=== PATIENT | female | born 1985 | race Two or more races ===

== ENCOUNTER 2020-06-28 06:16 | Outpatient (REF) | payer OTHER, SELFPAY ==
[2020-06-28 11:38] LABS: Hematocrit 41.7 % (37-47); Hemoglobin 13.6 g/dl (12.0-16.0); Mean Corpuscular HGB Conc 32.6 g/dl (31.0-35.0); Mean Corpuscular Hemoglobin 29.4 pg (27.0-33.0); Mean Corpuscular Volume 90.3 fL (80-98); Mean Platelet Volume 11.6 fL (9.4-12.3); Platelet Count 259 X10*3/uL (160-400); Red Blood Count 4.62 X10*6/uL (4.20-5.50); White Blood Count 6.3 X10*3/uL (4.8-10.8)
[2020-06-28 12:09] LABS: Anion Gap 12 (12-20); Blood Urea Nitrogen 11 mg/dL (9-16); Carbon Dioxide 31 mmol/L (22-29); Chloride 104 mmol/L (96-108); Potassium 4.7 mmol/L (3.3-5.1); Sodium 142 mmol/L (135-145)
[2020-06-28 12:10] LABS: Alanine Aminotransferase 19 U/L (0-31); Albumin Level 4.4 g/dL (3.5-5.0); Alkaline Phosphatase 67 U/L (39-117); Aspartate Amino Transferase 17 U/L (5-31); Bilirubin Total 0.4 mg/dL (0.0-1.0); Calcium 9.6 mg/dL (8.4-10.2); Estimated Glomerular Filt Rate > 60; Glucose Fasting 93 mg/dL (60-99); TSH reflex Free T4 1.67 uIU/mL (0.32-4.0); Total Protein 7.1 g/dL (6.5-8.0)
[2020-06-28 13:09] LABS: Estimated Average Glucose 117 mg/dL; Hemoglobin A1c % 5.7 %
[2020-06-29 13:46] LABS: Anti Nuclear Antibody Screen NEGATIVE (NEGATIVE)
== END 2020-06-28 06:17 | disposition home or self-care (01) ==
LOC: HO.HMGCLDS 06:16
PROVIDERS: PCP Internal Medicine; Visit Provider Internal Medicine
DX: Z00.00 Encounter for general adult medical examination without abnormal findings (principal); R21 Rash and other nonspecific skin eruption; R73.9 Hyperglycemia, unspecified
CPT/HCPCS: 36415; 80053; 83036; 84443; 85027; 86038; 86039

== ENCOUNTER 2020-10-05 15:54 | Outpatient (REF) | payer OTHER, SELFPAY ==
--- NOTE | ~2020-10-05 | XR_ITS ---
EXAMINATION: XR FOOT, RIGHT CLINICAL INFORMATION: Injury right foot. COMPARISON: None TECHNIQUE: AP, lateral, and oblique views of the right foot. FINDINGS: There is a nondisplaced fracture base of proximal phalanx fourth digit without intra-articular extension. No additional bony abnormality seen. The soft tissues are normal. XR/XR foot RT min 3V IMPRESSION: Nondisplaced fracture base of proximal phalanx fourth digit without intra-articular extension.
== END 2020-10-05 15:55 | disposition home or self-care (01) ==
LOC: HO.HMGCX 15:54
PROVIDERS: PCP Internal Medicine; Visit Provider Nurse Practitioner Family
DX: S99.921A Unspecified injury of right foot, initial encounter (principal)
CPT/HCPCS: 73630

== ENCOUNTER → 2020-10-16 10:18 | Outpatient (BNVA) | payer OTHER, SELFPAY | PROVIDERS: Visit Provider Physician Assistant | DX: S92.911A Unspecified fracture of right toe(s), initial encounter for closed fracture (principal) | CPT/HCPCS: 99202 ==

== ENCOUNTER 2023-12-11 09:13 | Emergency (ER) | payer OTHER, SELFPAY ==
[2023-12-11 09:16] VITALS: BP 129/82; PULSE 60; RESP 18; TEMP 36.4; O2SAT 100; BMI 25.6
[2023-12-11 09:30] LABS: MANUAL DIFF FLAG NO
[2023-12-11 09:35] LABS: Basophils Absolute Auto 0.1 X10*3/uL (0.0-0.2); Basophils Percent Auto 0.9 % (0-2); Eosinophils Absolute Auto 0.1 X10*3/uL (0.0-0.4); Eosinophils Percent Auto 0.6 % (0-4); Hematocrit 38.2 % (37.0-47.0); Hemoglobin 13.2 g/dl (12.0-16.0); Imm Gran Abs Auto 0.04 X10*3/uL (0.00-0.03); Imm Gran Pct Auto 0.4 % (0.0-0.4); Lymphocytes Absolute Auto 1.3 X10*3/uL (1.2-4.9); Lymphocytes Percent Auto 13.8 % (20-40); Mean Corpuscular HGB Conc 34.6 g/dl (31.0-35.0); Mean Corpuscular Hemoglobin 30.8 pg (27.0-33.0); Monocytes Absolute Auto 0.6 X10*3/uL (0.1-1.2); Monocytes Percent Auto 6.6 % (2-11); Neutrophils Absolute Auto 7.6 x10*3/uL (2.0-8.3); Neutrophils Percent Auto 77.7 % (45-73); Platelet Count 248 X10*3/uL (160-400); Red Blood Count 4.29 X10*6/uL (4.20-5.50); Red Cell Distribution Width 13.2 % (11.0-16.0); White Blood Count 9.7 X10*3/uL (4.8-10.8)
--- NOTE | 2023-12-11 09:44 | ED_ITS ---
HPI - Nausea/Vomiting/Diarrhea General Chief complaint: Nausea/Vomiting/Diarrhea Stated complaint: vomiting, diarrhea Time Seen by Provider: 12/11/23 09:43 Source: patient Mode of arrival: ambulatory Limitations: no limitations History of Present Illness HPI Narrative: 38-year-old female past medical history significant for hyperglycemia toe fracture who presents emergency department with nausea vomiting and diarrhea. She states she did have some sick kids few days ago she denies any falls or injuries she denies chest pain cough or fever. MD elicited complaint: nausea, vomiting and diarrhea Related Data Home Medications ?Medication ?Instructions ?Recorded ?Confirmed [id number] 3-fat com #1 27 cap PO 06/26/20 06/26/20 mg-1 mg-300 mg capsule Previous Rx's ?Medication ?Instructions ?Recorded ondansetron 4 mg disintegrating 4 mg PO Q6H #14 tabs 12/11/23 tablet Allergies Allergy/AdvReac Type Severity Reaction Status Date / Time No Known Allergies Allergy Verified 12/11/23 09:17 [No Known Allergies*] Review of Systems 2 Review of Systems: Review of systems: General: Patient denies any fever chills recent illness or falls Musculoskeletal: Denies back pain or body aches or other injuries HEENT: denies headache, runny nose, ear pain Respiratory: denies shortness of breath, cough Cardiovascular: no chest pain or palpitations : denies dysuria, frequency Abdomen: Diarrhea nausea vomiting denies abdominal pain Extremities: no swelling, no pain Skin: no diaphoresis Yes all other systems are reviewed and are negative PMFSH Past Medical History Medical History Annual physical exam Hyperglycemia Rash Surgical History H/O: hysterectomy Family History Family History Father Hypertension Mother Hypertension Social History Social History (Updated 10/16/20 @ 10:32 by Paulino Gonzales) Alcohol intake: former Smoked in Last 30 Days: No Use of substances other than those prescribed or required for medical reasons: No Advance Directives: No Advance Directives Information Provided: Yes Do you have a plan to hurt others: No Plan 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 Physical Exam 2 Vital Signs: Vital Signs: Last Vital Signs Temp 97.5 F 12/11/23 09:16 Pulse 60 12/11/23 09:16 Resp 18 12/11/23 09:16 BP 129/82 12/11/23 09:16 Pulse Ox 100 12/11/23 09:16 O2 Del Method Room Air 12/11/23 09:16 BMI result Body Mass Index 25.6 General: Well-appearing well-nourished in no signs of distress HEENT: Normocephalic atraumatic Neck: No signs of JVD, no masses no tenderness or lymphadenopathy Cardiovascular: Regular rate and rhythm Respiratory: Clear to auscultation bilaterally Abdomen: Soft nontender no masses rectal exam performed 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 Extremities: Normal pedal pulses no signs of edema Skin: Dry warm no rashes Back: No tenderness full ROM Course Course Course Narrative: Patient is feeling much better I will discharge home with Zofran and close PCP follow up. Medications Administered Discontinued Medications Generic Name Dose Route Start Last Admin Trade Name Naveenq PRN Reason Stop Dose Admin Famotidine 20 mg 12/11/23 09:58 12/11/23 10:05 Famotidine/Pf 20 Mg/2 Ml Vial IVPUSH 12/11/23 09:59 20 mg ONCE ONE Administration Sodium Chloride 1,000 mls @ 999 mls/hr 12/11/23 09:45 12/11/23 09:53 Ns IV 12/11/23 10:45 999 mls/hr .Q1H1M BRIAN Administration Ondansetron HCl 4 mg 12/11/23 09:44 12/11/23 09:53 Ondansetron Hcl 4 Mg/2 Ml Vial IVPUSH 12/11/23 09:45 4 mg ONCE ONE Administration Medical Decision Making Medical Decision Making [facility] Narrative: I do feel this is most likely acute GI illness I do not think his surgical issue. I will get a CT scan is warranted I will give the patient fluids and reassess Differential Diagnosis Differential Diagnoses: The differential diagnosis associated with the presentation includes Vomiting diarrhea gastroenteritis dehydration electrolyte abnormality patient has a benign abdomen I will give the patient Zofran and fluids and reassess Lab Data 12/11/23 09:26 12/11/23 09:26 Labs: Lab Results 12/11/23 Range/Units 09:26 WBC 9.7 (4.8-10.8) X10*3/uL RBC 4.29 (4.20-5.50) X10*6/uL Hgb 13.2 (12.0-16.0) g/dl Hct 38.2 (37.0-47.0) % MCV 89.0 (80.0-98.0) fL MCH 30.8 (27.0-33.0) pg MCHC 34.6 (31.0-35.0) g/dl RDW 13.2 (11.0-16.0) % Plt Count 248 (160-400) X10*3/uL MPV 11.0 (9.4-12.3) fL Immature Gran % (Auto) 0.4 (0.0-0.4) % Neut % (Auto) 77.7 H (45-73) % Lymph % (Auto) 13.8 L (20-40) % [place] % (Auto) 6.6 (2-11) % Eos % (Auto) 0.6 (0-4) % Baso % (Auto) 0.9 (0-2) % Lymph # (Auto) 1.3 (1.2-4.9) X10*3/uL [place] # (Auto) 0.6 (0.1-1.2) X10*3/uL Eos # (Auto) 0.1 (0.0-0.4) X10*3/uL Baso # (Auto) 0.1 (0.0-0.2) X10*3/uL Abs Immat Gran (auto) 0.04 H (0.00-0.03) X10*3/uL Absolute Neuts (auto) 7.6 (2.0-8.3) x10*3/uL Absolute Nucleated RBC 0.000 (0.0-0.012) X10*3/uL Nucleated RBC % (auto) 0.0 (0.0-0.2) /100WBC Sodium 139 (135-145) mmol/L Potassium 3.7 (3.3-5.1) mmol/L Chloride 107 (96-108) mmol/L Carbon Dioxide 23 (22-29) mmol/L Anion Gap 13 (12-20) BUN 8 L (9-16) mg/dL Creatinine 0.66 (0.5-1.4) mg/dL Estim Creat Clear Calc 100.1 Estimated GFR > 60 Random Glucose 108 (60-115) mg/dL Calcium 9.1 (8.4-10.2) mg/dL Discharge Plan Discharge Clinical Impression: Vomiting, Dehydration, Diarrhea Patient Disposition: Home, Self-Care Instructions: Dehydration (ED), Acute Nausea and Vomiting (ED), Acute Diarrhea (ED) Additional Instructions: You were seen today for vomiting and diarrhea. You had labs done and were given some medications I will send her home with the same medications. If you have worsening nausea vomiting or any other concerns please return to emergency department Prescriptions: New ondansetron 4 mg tablet,disintegrating 4 mg PO Q6H Qty: 14 0RF No Action [id number] 3-fat com #1 27-1-300 mg capsule PO Print Language: Ukrainian
[2023-12-11 09:45] LABS: Anion Gap 13 (12-20); Blood Urea Nitrogen 8 mg/dL (9-16); Calcium 9.1 mg/dL (8.4-10.2); Carbon Dioxide 23 mmol/L (22-29); Chloride 107 mmol/L (96-108); Creatinine Clr Calc Pharmacy 100.1; Estimated Glomerular Filt Rate > 60; Glucose Random 108 mg/dL (60-115); Potassium 3.7 mmol/L (3.3-5.1); Sodium 139 mmol/L (135-145)
[2023-12-11] MEDS: ondansetron HCL 4 MG/2 ML VIAL IVPUSH (09:53)
[2023-12-11] MEDS: 0.9 % Sodium Chloride 1,000 ML 999 ML IV (09:53)
[2023-12-11] MEDS: Famotidine/PF 20 MG/2 ML VIAL IVPUSH (10:05)
[2023-12-11 11:55] VITALS: BP 129/82; PULSE 60; RESP 18; TEMP 36.4; O2SAT 98
== END 2023-12-11 11:55 | disposition home or self-care (01) ==
PROVIDERS: Emergency Provider Student in an Organized Health Care Education/Training Program
DX: E86.0 Dehydration (principal); R11.2 Nausea with vomiting, unspecified; R19.7 Diarrhea, unspecified
CPT/HCPCS: 36415; 80048; 85025; 96361; 96374; 96375; 99284; J2405

== ENCOUNTER 2024-07-13 09:15 | Outpatient (REF) | payer OTHER, SELFPAY ==
--- OUTSIDE RECORDS SUMMARY | 2024-07-13 09:50 | XMS_ITS ---
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 Encounter Location Date Provider Diagnosis [address] [address] 03/18/2024 CORBY JOSHI Encounter for gynecological examination (general) (routine) without abnormal findings Z01.419 and Encounter for screening for infections with a predominantly sexual mode of transmission Z11.3 Assessments Encounter Date Diagnosis (ICD Code) Assessment Notes Treatment Notes Treatment Clinical Notes Section Notes 03/18/2024 Encounter for gynecological examination (general) (routine) without abnormal findings (ICD-10 - Z01.419) During the visit, the following areas of concern were addressed: Discussed cervical cancer screening with either cytology alone every 3 years or high risk HPV co-testing every 5 years as per ASCCP guidelines. Advised continued annual pelvic exams. Patient encouraged to increase her level of exercise. SBE technique encouraged/tau ght. 03/18/2024 Encounter for screening for infections with a predominantly sexual mode of transmission (ICD-10 - Z11.3) Plan Of Treatment Treatment Notes Assessment Notes Encounter for gynecological examination (general) (routine) without abnormal findings During the visit, the following areas of concern were addressed: Discussed cervical cancer screening with either cytology alone every 3 years or high risk HPV co-testing every 5 years as per ASCCP guidelines. Advised continued annual pelvic exams. Patient encouraged to increase her level of exercise. SBE technique encouraged/taught. Next Appt Details Follow Up: 1 Year, Reason: Y early Instrument Checker Exam Progress Notes * FERNANDO BANKSDOB:1988 (36 yo F)Acc No.[id number]:03/18/2024 Progress Note Patient:?FERNANDO BANKS Provider:?CORBY JOSHI MD :05/08/1988???Age:35 Y???Sex:Female D ate:03/18/2024 Address:[address] [place], [place] [id number] Subjective: * Chief Complaints: * ???1. 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 * HPI: ???Constitutional:? 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 She is new to this practice, having received previous drop clipper care . She has been in state of health since her last exam. She has the following concerns: . She has received the Covid-19 vaccine. Relationship status: for years. She is sexually active. Sexual partner(s): . She does wish to have STI testing. Menses: Contraception: The patient has had an abnormal pap smear within the last 5 years. Her most recent pap smear was . The patient does exercise. She exercises x days/week by . * ROS:?Annual Instrument Checker Exam ROS:?Bowel habit changes?denies.?Bladder symptoms?denies.?Vaginal discharge, unusual?denies.?Vaginal itch or odor?denies.?weight or appetite changes?denies.?Chest pains, SOB?denies.?depression?denies.?Breast:?Denies?Breast lump.?Denies?Nipple discharge.?Hematology:?Denies?Swollen glands.?Skin:?Patient complaining of?changing moles.?Psychiatric:?Denies?Anxiety.? * Medical History:? Objective: * Vitals:? * Examination: ???General Examination: ?GENERAL APPEARANCE:?in no acute distress,well developed, well nourished,sluice tender present in room.?HEAD:?normocephalic, atraumatic.?NECK/THYROID:?neck supple, full range of motion,thyroid normal.?LYMPH NODES:?no axillary or supraclavicular adenopathy.?SKIN:?normal,good turgor,no rashes,no suspicious lesions.?BREASTS:?normal,no dimpling,no discharge,no drainage,no masses palpable bilaterally,nontender.?ABDOMEN:?soft, non-tender, non distended without masses or hepatosplenomegay.?BACK:?no costovertebral angle tenderness.?FEMALE GENITOURINARY:?Vulva without lesions or masses, vagina pink without abnormal discharge, lesions or masses, cervix appears normal and is not tender to palpation, uterus is normal size, mobile, nontender and anteverted, ovaries are not palpable.?NEUROLOGIC:?alert and oriented,gait normal.?PSYCH:?alert, oriented,cognitive function intact,cooperative with exam,good eye contact,mood/affect full range,speech clear.? Assessment: * Assessment: 1.?Encounter for gynecologic al examination (general) (routine) without abnormal findings - Z01.419 (Primary)???2.?Encounter for screening for infections with a predominantly sexual mode of transmission - Z11.3??? Plan: * Treatment: * Follow Up:?1 Year (Reason: Y early Instrument Checker Exam) * Images: Billing Information: * Visit Code:? 40685 Preventive Care New Pt. Age 18-39. * Procedure Codes:? 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 She is new to this practice, having received previous drop clipper care . She has been in state of health since her last exam. She has the following concerns: . She has received the Covid-19 vaccine. Relationship status: for years. She is sexually active. Sexual partner(s): . She does wish to have STI testing. Menses: Contraception: The patient has had an abnormal pap smear within the last 5 years. Her most recent pap smear was . The patient does exercise. She exercises x days/week by . Examination Category Sub-Category Detail Notes Category Not es General Examination GENERAL APPEARANCE: in no ac tae distress, well developed, well nourished, sluice tender present in room HEAD: normocephalic, atrau matic NECK/THYROID: neck supple, full ra nge of motion, thyroid normal ABDOMEN: soft, non-tender, no n distended without masses or hepatosplenomegay NEUROLOGIC: alert and oriented, gait normal SKIN: normal, good turgor, no rashes, no suspicious lesions BACK: no costovertebral an gle tenderness BREASTS: normal, no dimpling, no discharge, no drainage, no masses palpable bilaterally, nontender LYMPH NODES: no axillary or supra clavicular adenopathy PSYCH: alert, oriented, cog nitive function intact, cooperative with exam, good eye contact, mood/affect full range, speech clear FEMALE GENITOURINARY: Vulva without lesi ons or masses, vagina pink without abnormal discharge, lesions or masses, cervix appears normal and is not tender to palpation, uterus is normal size, mobile, nontender and anteverted, ovaries are not palpable
--- OUTSIDE RECORDS SUMMARY | 2024-07-13 09:50 | XMS_ITS | Patient Health Record ---
Author Organization [facility] Address [address] [place] [address] Care Team Providers Care Environmental Conflict Manager Name Role Phone JOSHICORBY HERNANDEZ Unavailable [phone] Reason For Referral No Information Plan Of Treatment No Information Insurance Providers Payer Name Payer Address Payer Phone Subscriber Number Group Number Insured Name Patient Relationship to Insured Coverage Start Date Coverage End Date [facility] [address] [address] [place] [address] FERNANDO FRANCE Self - patient is the insured
--- OUTSIDE RECORDS SUMMARY | 2024-07-13 09:50 | XMS_ITS ---
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 Encounter Location Date Provider Diagnosis [address] [address] 03/15/2024 CORBY JOSHI Encounter for gynecological examination (general) (routine) without abnormal findings Z01.419 and Encounter for screening for infections with a predominantly sexual mode of transmission Z11.3 Assessments Encounter Date Diagnosis (ICD Code) Assessment Notes Treatment Notes Treatment Clinical Notes Section Notes 03/15/2024 Encounter for gynecological examination (general) (routine) without abnormal findings (ICD-10 - Z01.419) During the visit, the following areas of concern were addressed: Discussed cervical cancer screening with either cytology alone every 3 years or high risk HPV co-testing every 5 years as per ASCCP guidelines. Advised continued annual pelvic exams. Patient encouraged to increase her level of exercise. SBE technique encouraged/tau ght. 03/15/2024 Encounter for screening for infections with a [...] Follow Up: 1 Year, Reason: Y early Assembler Unit Exam Progress Notes * FERNANDO BANKSDOB:1988 (36 yo F)Acc No.[id number]:03/15/2024 Progress Note Patient:?FERNANDO BANKS Provider:?CORBY JOSHI MD :05/08/1988???Age:35 Y???Sex:Female D ate:03/15/2024 Address:[address] [place], [place] [id number] Subjective: * Chief Complaints: * ???1. 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 * HPI: ???Constitutional:? 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 She is new to this practice, having received previous ferris wheel operator care . She has been in state [...] exercises x days/week by . * ROS:?Annual Assembler Unit Exam ROS:?Bowel habit changes?denies.?Bladder symptoms?denies.?Vaginal discharge, unusual?denies.?Vaginal itch or odor?denies.?weight or appetite changes?denies.?Chest pains, SOB?denies.?depression?denies.?Breast:?Denies?Breast lump.?Denies?Nipple discharge.?Hematology:?Denies?Swollen glands.?Skin:?Patient complaining of?changing moles.?Psychiatric:?Denies?Anxiety.? * Medical History:? Objective: * Vitals:? * Examination: ???General Examination: ?GENERAL APPEARANCE:?in no acute distress,well developed, well nourished,professional wrestler present in room.?HEAD:?normocephalic, atraumatic.?NECK/THYROID:?neck supple, full range [...] * Follow Up:?1 Year (Reason: Y early Assembler Unit Exam) * Images: Billing Information: * Visit Code:? 59757 Preventive Care New Pt. Age 18-39. 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 She is new to this practice, having received previous ferris wheel operator care . She has been in state [...] ac tae distress, well developed, well nourished, professional wrestler present in room HEAD: normocephalic, atrau matic [...]
--- OUTSIDE RECORDS SUMMARY | 2024-07-13 09:50 | XMS_ITS | Clinical Summary ---
Author Organization Patient Business [facility] Address [address] [place] [address] Care Team Providers Care Child Care Attendant Name Role Phone Tatiana Jain MD Primary Care Provider [phone] Allergies No known active allergies Medications hydrocortisone 2.5 % ointment Light amount over affected hemorroidal tissue prn 4 11/28/19 25 Active UNABLE TO FIND Misc. Devices (Sitz Bath) Misc 1 Canister by Does not apply route 2 times daily. - Does not apply 4 Active polyethylene glycol (MIRALAX) 17 gram packet Take 1 Packet by mouth daily for 3 days. - Oral Active docusate sodium (Colace) 100 mg capsule Take 1 capsule (100 mg total) by mouth 2 (two) times a day. 60 each 11 4 Active linaCLOtide (Linzess) 290 mcg capsule Take 1 capsule (290 mcg total) by mouth 1 (one) time each day. 30 capsule 11 4 Active Active Problems Problem Noted Date Diagnosed Date Prediabetes 05/11/2024 Constipation 05/10/2024 Chronic bilateral low back pain without sciatica 05/10/2024 Encounters Date Type Department Care Team Description 05/10/2024 8:30 AM EST Office Visit Adult Medicine [address] [phone] Ruddy Campos PA Routine physical examination (Primary Dx); Constipation, unspecified constipation type; Chronic bilateral low back pain without sciatica; Screening for cervical cancer; Screening mammogram for breast cancer from Last 3 Months Immunizations Name Administration Dates Next Due Influenza trivalent, 0.5mL, preservative free (Fluarix; FluLaval; Fluzone) ages 6mo and older (Afluria) 3 years and older 12/08/2022,05/04/2018 Influenza trivalent, MDCK, 0 .5mL, preservative free (Flucelvax) 6mo and older 12/26/2023 MMR, measles mumps and rubel la Live (Priorix; M-M-R II) 12mo and older 04/17/2020 Tdap Tetanus diptheria acell ular pertussis (Boostrix; Adacel) 7yo and older 01/30/2020,08/23/2018 Surgical History Surgery Date Site/Laterality Comments TUBAL LIGATION Family History Medical History Relation Name Comments Hyperlipidemia Father No Known Problems Maternal Grandfather No Known Problems Maternal Grandmother Uterine cancer Mother 60's No Known Problems Paternal Grandfather No Known Problems Paternal Grandmother Relation Name Status Comments Father Alive Maternal Grandfather Maternal Grandmother Mother Paternal Grandfather Paternal Grandmother Social History Tobacco Use Types Packs/Day Years Used Date Smoking Tobacco: Never Smokeless Tobacco: Never Tobacco Cessation:Counseling Given: Not Answered Alcohol Use Standard Drinks/Week Comments Yes 0 (1 standard drink = 0.6 oz pur e alcohol) occ Housing Instability Answer Date Recorde d Are you worried that in the next 2 months you may not have stable housing? No 05/09/2024 Food Access & Nutrition Answer Date Rec orded Do you have access to a vari ety of food including fruits and vegetables? Yes 05/09/2024 Access to Healthcare Answer Date Record ed Within the last 3 months, hernesto boone many times did you visit the emergency department for your medical care? 1 05/09/2024 Health Literacy Answer Date Recorded How often do you need to hav e someone help you when you read instructions, pamphlets, or other written material from your doctor or pharmacy? Never 05/09/2024 Caregiver: How often do you need to have someone help you when you read instructions, pamphlets, or other written material from your doctor or pharmacy? Not on file 05/09/2024 Financial Risk Answer Date Recorded How hard is it for you to pa y for the very basics like food, housing, medical care, and air conditioning / heating? Not very hard 05/09/2024 Transportation Answer Date Recorded Has the lack of transportati on kept you from meetings, work, or from getting things needed for daily living? Yes Has the lack of transportati on kept you from medical appointments or from getting medications? Yes 05/09/2024 Social Isolation Answer Date Recorded How often do you feel lonely or isolated from th ose around you? Never 05/09/2024 Food Risk Answer Date Recorded Within the past 12 months we worried whether our food would run out before we got money to buy more. Never true 05/09/2024 Within the past 12 months th e food we bought just didn't last and we didn't have money to get more. Never true 05/09/2024 Dependent Care Answer Date Recorded Do you need help finding or paying for care for your loved ones. For example, child daycare worker or elderly care for an older adult? No 05/09/2024 Education Answer Date Recorded Do you think completing more education or training, like finishing a GED, going to college, or learning a trade, would be helpful for you? N/A 05/09/2024 Employment and Income Answer Date Recor ded During the last four weeks, have you been actively looking for work? No 05/09/2024 Living Situation Answer Date Recorded What is your living situation? 0 05/09/2024 Comments Unknown Sex and Gender Information Value Date Recorded Sex Assigned at Not on file Legal Sex Female 3:14 PM EDT Gender Identity Not on file Sexual Orientation Not on file Obstetrics History Last Filed Vital Signs Vital Sign Reading Time Taken Comments Blood Pressure 112/70 05/10/2024 8:31 AM EST Pulse 72 05/10/2024 8:31 AM EST Temperature 36.6 ??C (97.9 ??F) 05/10/2024 8:31 AM ES T Respiratory Rate 14 05/10/2024 8:31 AM EST Oxygen Saturation - - Inhaled Oxygen Concentration - - Weight 69.4 kg (153 lb 1.6 oz) 05/10/2024 8:31 A M EST Height 161.3 cm (5' 3.5 ) 05/10/2024 8:31 AM EST Body Mass Index 26.7 05/10/2024 8:31 AM EST Plan of Treatment Upcoming Encounters Date Type Department Care Team (Late st Contact Info) Description 05/12/2025 9:30 AM EST Office Visit Adult Medicine [facility] [address] [place] [phone] Tatiana Jain MD [address] [place] [phone] Health Maintenance Due Date Last Done Comments Breast Cancer Screening 1984 Hepatitis B Vaccines (1 of 3 - 19+ 3-dose series) 05/08/2003 Pneumococcal Vaccine: Pediatrics (0 to 5 Years) and At-Risk Patients (6 to 64 Years) (1 of 2 - PCV) 05/08/2003 Cervical Cancer Screening: Pap Smear 2005 HIV Screening 06/14/2023 Hepatitis C Screening 06/14/2023 Depression Screening 05/09/2025 05/09/2024, 05/19/2023 Social Influencers of Health Screening 05/09/2025 05/09/2024 Cholesterol Screening (Lipid Panel) 05/10/2029 05/10/2024 DTaP,Tdap,and Td Vaccines (3 - Td or Tdap) 01/29/2030 01/30/2020, 08/23/2018 MMR Vaccines Aged Out 04/17/2020 No longer eligi ble based on patient's age to complete this topic COVID-19 Vaccine Discontinued 04/10/2021, 07/25/2020, 07/03/2020 Influenza Vaccine Completed 12/26/2023, 12/08/2022, 05/04/2018 HIB Vaccines Aged Out No longer eligi ble based on patient's age to complete this topic HPV Vaccines Aged Out No longer eligi ble based on patient's age to complete this topic Hepatitis A Vaccines Aged Out No long er eligible based on patient's age to complete this topic IPV Vaccines Aged Out No longer eligi ble based on patient's age to complete this topic Meningococcal ACWY Vaccine Aged Out N o longer eligible based on patient's age to complete this topic Meningococcal B Vaccine Aged Out No l onger eligible based on patient's age to complete this topic RSV Immunization Patients Under 20 months Aged Out No longer eligible based on patient's age to complete this topic Varicella Vaccines Aged Out No longer eligible based on patient's age to complete this topic Procedures Procedure Name Priority Date/Time Associated Diagnosis Comments HEMOGLOBIN A1C Routine 05/10/2024 1:07 PM EST Routine physical examination LIPID PANEL WITH REFLEX TO DIRECT LDL Routine 05/10/2024 1:07 PM EST Routine physical examination THYROID STIMULATING HORMONE WITH REFLEX TO FREE T4 AND FREE T3 Routine 05/10/2024 1:07 PM EST Routine physical examination HM DEPRESSION SCREENING Routine 05/19/2023 from Last 3 Months or Most Recently Relevant to Health Maintenance Results * Thyroid stimulating hormone with reflex to free t4 and free t3 (05/10/2024 1:07 PM EST) TSH 1.64 0.40 - 4.00 mcIU/mL LAB CHEMISTRY METHOD 05/10/2024 5:02 PM EST [facility] Blood Venous blood specimen / Unknown Venipuncture / Unknown 05/10/2024 1:07 PM EST 05/10/2024 1:11 PM EST us Ruddy BAZAN LAB BLOOD ORDERABLES Final Res ult [facility] [address] [place] [address], * (ABNORMAL) Lipid panel with reflex to direct LDL (05/10/2024 1:07 PM EST) Cholesterol 217(H) 0 - 200 mg/dL LAB CHEMISTRY METHOD 05/10/2024 4:58 PM EST [facility] Triglycerides 90 0 - 150 mg/dL LAB CHEMISTRY METHOD 05/10/2024 4:58 PM EST [facility] HDL 82 >=40 mg/dL LAB CHEMISTRY METHOD 05/10/2024 4:58 PM EST [facility] LDL Calculated 117(H) 0 - 100 mg/dL LAB CHEMISTRY METHOD 05/10/2024 4:58 PM EST [facility] VLDL Cholesterol Richard 18 mg/dL LAB CHEMISTRY METHOD 05/10/2024 4:58 PM EST [facility] Non HDL Chol. (LDL+VLDL) 135 <145 mg/dL LAB CHEMISTRY METHOD 05/10/2024 4:58 PM EST [facility] Chol/HDL Ratio 2.6 0.0 - 4.4 LAB CHEMISTRY METHOD 05/10/2024 4:58 PM EST [facility] Blood Venous blood specimen / Unknown Venipuncture / Unknown 05/10/2024 1:07 PM EST 05/10/2024 1:11 PM EST Ruddy BAZAN LAB BLOOD ORDERABLES Final Res ult Performing Organization Address City/[facility]/ZIP Co de Phone Number [facility] [address] [place] [address], [place] [phone] * Hemoglobin A1c (05/10/2024 1:07 PM EST) Hemoglobin A1C 5.9 <6.5 % LAB CHEMISTRY METHOD 05/10/2024 8:55 PM EST [facility] Mean Bld Glu Estim. 123 mg/dL LAB CHEMISTRY METHOD 05/10/2024 8:55 PM EST [facility] Blood Venous blood specimen / Unknown Venipuncture / Unknown 05/10/2024 1:07 PM EST 05/10/2024 1:11 PM EST Ruddy BAZAN LAB BLOOD ORDERABLES Final Res ult [facility] [address] [place] [address], [place] [phone] * Depression Screening (05/19/2023) Depression Screening abstracted us Historical Provider HEALTH MAINTENANCE Final Result from Last 3 Months or Most Recently Relevant to Health Maintenance Insurance [employer] Care Teams Child Care Attendant Relationship Specialty Start Date End Date Tatiana Jain MD [address] [place] [address] [phone] PCP - General 05/18/23
== END 2024-07-13 09:16 | disposition home or self-care (01) ==
LOC: HO.LAB 09:15
PROVIDERS: PCP Internal Medicine; Visit Provider Internal Medicine
DX: Z13.89 Encounter for screening for other disorder (principal)

== ENCOUNTER 2024-07-15 08:51 | Outpatient (REF) | payer OTHER, SELFPAY ==
[2024-07-15 09:04] LABS: MANUAL DIFF FLAG NO
--- OUTSIDE RECORDS SUMMARY | 2024-07-15 09:04 | XMS_ITS | Patient Health Record ---
Author Organization [facility] Address [address] [place] [address] Care Team Providers Care Blend Plant Operator Name Role Phone JOSHI CORBY Unavailable [phone] Reason For Referral No Information Plan Of Treatment No Information Insurance Providers Payer Name Payer Address Payer Phone Subscriber Number Group Number Insured Name Patient Relationship to Insured Coverage Start Date Coverage End Date [facility] [address] [address] [place] [address] FERNANDO FRANCE Self - patient is the insured
--- OUTSIDE RECORDS SUMMARY | 2024-07-15 09:05 | XMS_ITS ---
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 * HPI: ???Constitutional:? Fernando is a 35yo GxPx with LMP x/x/x who presents for her yearly research and evaluation manager annual exam. She is new to this practice, having received previous research and evaluation manager care . She has been in state [...] exercises x days/week by . * ROS:?Annual Core Feeder Exam ROS:?Bowel habit changes?denies.?Bladder symptoms?denies.?Vaginal discharge, unusual?denies.?Vaginal itch or odor?denies.?weight or appetite changes?denies.?Chest pains, SOB?denies.?depression?denies.?Breast:?Denies?Breast lump.?Denies?Nipple discharge.?Hematology:?Denies?Swollen glands.?Skin:?Patient complaining of?changing moles.?Psychiatric:?Denies?Anxiety.? * Medical History:? Objective: * Vitals:? * Examination: ???General Examination: ?GENERAL APPEARANCE:?in no acute distress,well developed, well nourished,alignment specialist present in room.?HEAD:?normocephalic, atraumatic.?NECK/THYROID:?neck supple, full range [...] * Follow Up:?1 Year (Reason: Y early Core Feeder Exam) * Images: Billing Information: * Visit Code:? 87439 Preventive Care New Pt. Age 18-39. * Procedure Codes:? * Electronic signature of CORBY JOSHI MD on 07/15/2024 at 09:04 AM EDT Sign off status: Pending * Provider:?CORBY JOSHI MD Date:?2024 Generated for Noris felix/Bhupendra/eTwildsmitting on:?07/15/2024 09:04 AM EDT History and Physical Notes * HPI (History of Present Illness) Category Sub-Category Detail Notes Category Not es Constitutional Fernando is a 35yo GxPx with LMP x/x/x who presents for her yearly research and evaluation manager annual exam. She is new to this practice, having received previous research and evaluation manager care . She has been in state [...] General Examination GENERAL APPEARANCE: in no ac ate distress, well developed, well nourished, alignment specialist present in room HEAD: normocephalic, atrau matic [...]
--- OUTSIDE RECORDS SUMMARY | 2024-07-15 09:05 | XMS_ITS ---
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 * HPI: ???Constitutional:? Fernando is a 35yo GxPx with LMP x/x/x who presents for her yearly general labor annual exam. She is new to this practice, having received previous general labor care . She has been in state [...] exercises x days/week by . * ROS:?Annual Drivematic Machine Operator Exam ROS:?Bowel habit changes?denies.?Bladder symptoms?denies.?Vaginal discharge, unusual?denies.?Vaginal itch or odor?denies.?weight or appetite changes?denies.?Chest pains, SOB?denies.?depression?denies.?Breast:?Denies?Breast lump.?Denies?Nipple discharge.?Hematology:?Denies?Swollen glands.?Skin:?Patient complaining of?changing moles.?Psychiatric:?Denies?Anxiety.? * Medical History:? Objective: * Vitals:? * Examination: ???General Examination: ?GENERAL APPEARANCE:?in no acute distress,well developed, well nourished,auto technician mechanic present in room.?HEAD:?normocephalic, atraumatic.?NECK/THYROID:?neck supple, full range [...] * Follow Up:?1 Year (Reason: Y early Drivematic Machine Operator Exam) * Images: Billing Information: * Visit Code:? [id number] Preventive Care New Pt. Age 18-39. * Procedure Codes:? * Electronic signature of CORBY JOSHI MD on 07/15/2024 at 09:05 AM EDT Sign off status: Pending * Provider:?CORBY JOSHI MD Date:?2024 Generated for Noris felix/Bhupendra/eTwildsmitting on:?07/15/2024 09:05 AM EDT History and Physical Notes * HPI (History of Present Illness) Category Sub-Category Detail Notes Category Not es Constitutional Fernando is a 35yo GxPx with LMP x/x/x who presents for her yearly general labor annual exam. She is new to this practice, having received previous general labor care . She has been in state [...] ac tae distress, well developed, well nourished, auto technician mechanic present in room HEAD: normocephalic, atrau matic [...]
--- OUTSIDE RECORDS SUMMARY | 2024-07-15 09:05 | XMS_ITS | Clinical Summary ---
Author Organization Patient Business [facility] Address [address] [place] [address] Care Team Providers Care Meat Lugger Name Role Phone Tatiana Jain MD Primary Care Provider [phone] Allergies No known active allergies Medications hydrocortisone [...] 8:30 AM EST Office Visit Adult Medicine [address] [phone] Ruddy Campos PA Routine physical examination (Primary [...] for your loved ones. For example, child care group leader or elderly care for an older adult? [...] 9:30 AM EST Office Visit Adult Medicine [facility] [address] [place] [phone] Tatiana Jain MD [address] [place] [phone] Health Maintenance Due Date Last Done Comments [...] LAB CHEMISTRY METHOD 05/10/2024 5:02 PM EST [facility] Blood Venous blood specimen / Unknown Venipuncture / Unknown 05/10/2024 1:07 PM EST 05/10/2024 1:11 PM EST us Ruddy BAZAN LAB BLOOD ORDERABLES Final Res ult [facility] [address] [place] [address], * (ABNORMAL) Lipid panel with reflex to direct LDL (05/10/2024 1:07 PM EST) Cholesterol 217(H) 0 - 200 mg/dL LAB CHEMISTRY METHOD 05/10/2024 4:58 PM EST [facility] Triglycerides 90 0 - 150 mg/dL LAB CHEMISTRY METHOD 05/10/2024 4:58 PM EST [facility] HDL 82 >=40 mg/dL LAB CHEMISTRY METHOD 05/10/2024 4:58 PM EST [facility] LDL Calculated 117(H) 0 - 100 mg/dL LAB CHEMISTRY METHOD 05/10/2024 4:58 PM EST [facility] VLDL Cholesterol Richard 18 mg/dL LAB CHEMISTRY METHOD 05/10/2024 4:58 PM EST [facility] Non HDL Chol. (LDL+VLDL) 135 <145 mg/dL LAB CHEMISTRY METHOD 05/10/2024 4:58 PM EST [facility] Chol/HDL Ratio 2.6 0.0 - 4.4 LAB CHEMISTRY METHOD 05/10/2024 4:58 PM EST [facility] Blood Venous blood specimen / Unknown Venipuncture / Unknown 05/10/2024 1:07 PM EST 05/10/2024 1:11 PM EST Ruddy BAZAN LAB BLOOD ORDERABLES Final Res ult Performing Organization Address City/[facility] [address]/ZIP Co de Phone Number [facility] [address] [place] [address], [place] [phone] * Hemoglobin A1c (05/10/2024 1:07 PM EST) Hemoglobin A1C 5.9 <6.5 % LAB CHEMISTRY METHOD 05/10/2024 8:55 PM EST [facility] Mean Bld Glu Estim. 123 mg/dL LAB CHEMISTRY METHOD 05/10/2024 8:55 PM EST [facility] Blood Venous blood specimen / Unknown Venipuncture / Unknown 05/10/2024 1:07 PM EST 05/10/2024 1:11 PM EST Ruddy BAZAN LAB BLOOD ORDERABLES Final Res ult [facility] [address] [place] [address], [place] [phone] * Depression Screening (05/19/2023) Depression Screening abstracted us Historical Provider HEALTH MAINTENANCE Final Result from Last 3 Months or Most Recently Relevant to Health Maintenance Insurance [employer] Care Teams Meat Lugger Relationship Specialty Start Date End Date Tatiana Jain MD [address] [place] [address] [phone] PCP - General 05/18/23
[2024-07-15 09:47] LABS: Basophils Absolute Auto 0.1 X10*3/uL (0.0-0.2); Basophils Percent Auto 1.5 % (0-2); Eosinophils Absolute Auto 0.1 X10*3/uL (0.0-0.4); Eosinophils Percent Auto 2.4 % (0-4); Hematocrit 38.5 % (37.0-47.0); Hemoglobin 12.6 g/dl (12.0-16.0); Imm Gran Abs Auto 0.02 X10*3/uL (0.00-0.03); Imm Gran Pct Auto 0.3 % (0.0-0.4); Lymphocytes Absolute Auto 1.6 X10*3/uL (1.2-4.9); Lymphocytes Percent Auto 27.4 % (20-40); Mean Corpuscular HGB Conc 32.7 g/dl (31.0-35.0); Mean Corpuscular Hemoglobin 29.3 pg (27.0-33.0); Mean Corpuscular Volume 89.5 fL (80.0-98.0); Mean Platelet Volume 11.3 fL (9.4-12.3); Monocytes Absolute Auto 0.6 X10*3/uL (0.1-1.2); Monocytes Percent Auto 9.5 % (2-11); Neutrophils Absolute Auto 3.5 x10*3/uL (2.0-8.3); Neutrophils Percent Auto 58.9 % (45-73); Platelet Count 306 X10*3/uL (160-400); Red Cell Distribution Width 13.5 % (11.0-16.0); White Blood Count 5.9 X10*3/uL (4.8-10.8)
[2024-07-15 09:57] LABS: Estimated Average Glucose 117 mg/dL; Hemoglobin A1C 126.5658 umol/L; Hemoglobin A1c % 5.7 % (<6.0); Total Hemoglobin (HGBA1C) 3299.2042 umol/L
[2024-07-15 10:09] LABS: Alanine Aminotransferase 18 U/L (0-31); Albumin Level 4.3 g/dL (3.5-5.0); Alkaline Phosphatase 46 U/L (39-117); Anion Gap 9 (12-20); Aspartate Amino Transferase 18 U/L (5-31); Bilirubin Total 0.4 mg/dL (0.0-1.0); Blood Urea Nitrogen 9 mg/dL (9-16); Calcium 9.5 mg/dL (8.4-10.2); Carbon Dioxide 28 mmol/L (22-29); Chloride 102 mmol/L (96-108); Cholesterol 214 mg/dL (<200); Estimated Glomerular Filt Rate > 60; Glucose Random 98 mg/dL (60-115); HDL Cholesterol 69 mg/dL (>40); LDL Cholesterol Calculated 130 mg/dL (<100); Potassium 3.9 mmol/L (3.3-5.1); Sodium 135 mmol/L (135-145); Total Protein 7.1 g/dL (6.5-8.0); Triglycerides 79 mg/dL (<150)
== END 2024-07-15 08:52 | disposition home or self-care (01) ==
LOC: HO.LAB 08:51
PROVIDERS: PCP Internal Medicine; Visit Provider Internal Medicine
DX: Z00.00 Encounter for general adult medical examination without abnormal findings (principal); Z12.4 Encounter for screening for malignant neoplasm of cervix; Z13.31 Encounter for screening for depression; Z86.32 Personal history of gestational diabetes
CPT/HCPCS: 36415; 80053; 80061; 83036; 85025

== ENCOUNTER 2024-08-26 15:06 | Outpatient (REF) | payer OTHER, SELFPAY ==
--- NOTE | ~2024-08-26 | MM_ITS ---
EXAMINATION: MM SCREENING DIGITAL BREAST TOMOSYNTHESIS, BILATERAL CLINICAL INFORMATION: Screening. Asymptomatic. COMPARISON: Mammography: Baseline. TECHNIQUE: Digital breast mammography with tomosynthesis is performed in both the craniocaudal and mediolateral oblique views along with computer-aided detection (CAD). FINDINGS: There are scattered areas of fibroglandular density (ACR BI-RADS breast composition Category b). There are no significant masses, abnormal calcifications, or other abnormalities. MM/MM tomosynthesis screening BI IMPRESSION: No mammographic evidence of malignancy. ASSESSMENT: BI-RADS BI-RADS 1 - Negative RECOMMENDATION: Routine annual mammography screening. 1 year F/U This examination should not preclude the clinical evaluation of a suspicious palpable abnormality. This patient's information was entered into a reminder system with a target due date for their next mammogram. Electronically signed by: Susan Pinzon DO 09/02/2024 08:35 AM EDT
--- OUTSIDE RECORDS SUMMARY | 2024-08-26 15:08 | XMS_ITS | Patient Health Record ---
Author Organization [facility] Address [address] [place] [address] Care Team Providers Care Hvac Sales Engineer Name Role Phone JOSHICORBY HERNANDEZ Unavailable [phone] Reason For Referral No Information Plan Of Treatment No Information Insurance Providers Payer Name Payer Address Payer Phone Subscriber Number Group Number Insured Name Patient Relationship to Insured Coverage Start Date Coverage End Date [facility] [address] [address] [place] [address] FERNANDO FRANCE Self - patient is the insured
== END 2024-08-26 15:07 | disposition home or self-care (01) ==
LOC: HO.MAMMO 15:06
PROVIDERS: PCP Internal Medicine; Visit Provider Internal Medicine
DX: Z12.31 Encounter for screening mammogram for malignant neoplasm of breast (principal)
CPT/HCPCS: 77063; 77067

== ENCOUNTER → 2024-08-26 15:15 | Outpatient (BNV) | payer OTHER, SELFPAY | PROVIDERS: PCP Internal Medicine; Visit Provider Internal Medicine | DX: Z12.31 Encounter for screening mammogram for malignant neoplasm of breast (principal) | CPT/HCPCS: 77063; 77067 ==